=== PATIENT | male | born 1965 | race Caucasian/White ===

== ENCOUNTER 2020-09-19 05:51 | Emergency (ER) | payer MEDICAID ==
[~2020-09-19] VITALS: Ht 175.3 cm; Wt 150.0 kg
[~2020-09-19 05:51] MED LIST: CELEXA10 MG PO; MOTRIN800 MG PO; NORCO 10/325 TA1 TA1 PO; PERCOCET 10/3251 TA1 PO; PRINIVIL20 MG PO; VALIUM5 MG PO
[2020-09-19 05:57] VITALS: Ht 175.3 cm; Wt 150.0 kg
[2020-09-19] MEDS ORDERED: ADIPEX-P37.5 MG PO (05:58)
[2020-09-19] MEDS ORDERED: AUGMENTIN 875-11 TAB PO (06:56)
[2020-09-19 07:16] VITALS: BP 126/90
== END 2020-09-19 07:19 | disposition home or self-care (01) ==
LOC: D.ER 05:51
DX: S41.112A Laceration without foreign body of left upper arm, initial encounter (principal); I10 Essential (primary) hypertension; W45.8XXA Other foreign body or object entering through skin, initial encounter; Y93.9 Activity, unspecified; Y92.9 Unspecified place or not applicable